=== PATIENT | female | born 1990 | race American Indian/Alaskan Native ===

== ENCOUNTER 2017-05-05 13:05 | Emergency (ER) | payer OTHER, BC ==
[2017-05-05 13:10] VITALS: BMI 21.7
[2017-05-05 13:12] VITALS: RESP 18; TEMP 98.4; O2SAT 98
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
[2017-05-05 15:10] VITALS: BP 127/74; PULSE 89
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
== END 2017-05-05 15:54 | disposition home or self-care (01) ==
LOC: ED 13:05
DX: S13.4XXA Sprain of ligaments of cervical spine, initial encounter (principal); S39.012A Strain of muscle, fascia and tendon of lower back, initial encounter; V49.49XA Driver injured in collision with other motor vehicles in traffic accident, initial encounter; Y92.410 Unspecified street and highway as the place of occurrence of the external cause

== ENCOUNTER 2017-09-19 11:18 | Emergency (ER) | payer OTHER ==
[2017-09-19 11:19] VITALS: BMI 21.7
== END 2017-09-19 11:38 | disposition left against medical advice (07) ==
LOC: ED 11:18
DX: Z02.89 Encounter for other administrative examinations (principal); K08.89 Other specified disorders of teeth and supporting structures

== ENCOUNTER 2018-01-19 14:47 | Emergency (ER) | payer OTHER ==
[2018-01-19 14:48] VITALS: BMI 21.7
--- NOTE | 2018-01-19 16:18 | ED PDOC ---
Arrival/HPI - General Chief Complaint: Abnormal Skin Integrity Time Seen by Provider: 01/19/18 15:56 Historian: Patient - History of Present Illness Narrative History of Present Illness (Text): 01/19/18 16:11 Pt is a 27 yr old female who presents with a right labial abscess x3 days that is described as swollen and painful. Pt states it's worse when sitting and wearing tight pants. reports using the hair removal product 'Ramírez' to remove hair along the bikini line just before she noticed the swelling. Denies fever, chill, sob, dysuria, back pain, numbness or referred pain from the area. LMP was 1 week ago. Denies 01/19/18 17:26 Time/Duration: < week Symptom Onset: Gradual Symptom Course: Unchanged Quality: Aching, Pressure Severity Level: 8 Activities at Onset: Rest, Light Context: Sitting, Home Past Medical History - Provider Review Nursing Documentation Reviewed: Yes - Travel History Have you recently traveled outside [place] w/in the past 3 mons?: No - Infectious Disease Hx of Infectious Diseases: None - Cardiac Hx Cardiac Disorders: No - Pulmonary Hx Respiratory Disorders: Yes Hx Asthma: Yes Hx Bronchitis: Yes - Neurological Hx Neurological Disorder: No - HEENT Hx HEENT Disorder: No - Renal Hx Renal Disorder: No - Endocrine/Metabolic Hx Endocrine Disorders: No - Hematological/Oncological Hx Blood Disorders: No - Integumentary Hx Dermatological Disorder: No - Musculoskeletal/Rheumatological Hx Musculoskeletal Disorders: No - Gastrointestinal Hx Gastrointestinal Disorders: No - Genitourinary/Gynecological Hx Genitourinary Disorders: No - Psychiatric Hx Psychophysiologic Disorder: No Hx Substance Use: No - Surgical History Hx Section: Yes (x2) - Anesthesia Hx Anesthesia: Yes Hx Anesthesia Reactions: No Hx Malignant Hyperthermia: No Family/Social History - Physician Review Nursing Documentation Reviewed: Yes Family/Social History: Unknown Family HX Smoking Status: Former Smoker Hx Alcohol Use: No Hx Substance Use: No Allergies/Home Meds Allergies/Adverse Reactions: Allergies No Known Allergies Allergy (Verified 01/19/18 15:35) Review of Systems - Review of Systems Systems not reviewed;Unavailable: Acuity of Condition Constitutional: Normal Eyes: Normal ENT: Normal Respiratory: Normal. absent: SOB Cardiovascular: Normal. absent: Chest Pain Gastrointestinal: Normal. absent: Abdominal Pain Genitourinary Female: Normal, Other (right labial pain). absent: Dysuria, Frequency, Hematuria, Urine Output Changes, Vaginal Bleeding, Vaginal Discharge Musculoskeletal: Normal. absent: Arthralgias, Back Pain, Joint Swelling Skin: Normal, Abscess (right labial pain). absent: Rash, Pruritis Neurological: Normal. absent: Headache Endocrine: Normal. absent: Diaphoresis Hemo/Lymphatic: Normal Psychiatric: Normal Physical Exam Vital Signs Reviewed: Yes Vital Signs Temp Pulse Resp BP Pulse Ox 01/19/18 17:30 98.7 F 61 20 118/68 98 01/19/18 17:28 98.7 F 61 20 118/68 98 01/19/18 15:35 99.4 F 84 16 122/75 100 Temperature: Afebrile Blood Pressure: Normal Pulse: Regular Respiratory Rate: Normal Appearance: Positive for: Well-Appearing, Non-Toxic, Comfortable Pain Distress: Mild Mental Status: Positive for: Alert and Oriented X 3 - Systems Exam Head: Present: Atraumatic, Normocephalic Respiratory/Chest: Present: Clear to Auscultation, Good Air Exchange. No: Respiratory Distress, Accessory Muscle Use Cardiovascular: Present: Regular Rate and Rhythm, Normal S1, S2. No: Murmurs Abdomen: Present: Normal Bowel Sounds. No: Tenderness, Distention, Peritoneal Signs Genitourinary/Pelvic Exam: Present: Normal External Genitalia (right labia majora abscess), Odor, Other (right labia majora abscess). No: Vaginal Discharge, Vaginal Bleeding, Vaginal Lesions Back: Present: Normal Inspection. No: CVA Tenderness, Midline Tenderness Upper Extremity: Present: Normal Inspection. No: Cyanosis, Edema Lower Extremity: Present: Normal Inspection. No: Edema, CALF TENDERNESS, NORMAL PULSES Neurological: Present: GCS=15, CN II-XII Intact, Speech Normal Skin: Present: Warm, Dry, Normal Color. No: Rashes Psychiatric: Present: Alert, Oriented x 3, Normal Insight, Normal Concentration Medical Decision Making ED Course and Treatment: 01/19/18 17:28 Impression Pt is a 27 yr old female who presents with a right labial abscess x3 days that is described as swollen and painful. On exam, right labia majora abscess open and actively draining purulent dc with odor; rest of the exam benign plan I&D of right labial abscess bactrim PO stat assess and dsipo Progress note lidocaine 1% x 5cc used to infiltrate the area, cleaned with betadyne and NS mix pt tolerated the procedure well advised pt to use sitz bath at home, clean and dry area well; change sanitary liners frequnetly daily take bactrim po as directed and apply bacitracin on the clean and dry area f/u with PMD in 2 days VSS on d/c - Procedure PROCEDURE NOTE (Text): 01/19/18 17:21 PROCEDURE: INCISION & DRAINAGE Performed by the emergency provider Indication: Abscess of right labia Location: Right Labia Majora Preparation: The area was prepped and draped in the usual sterile fashion and was cleansed with .~ Local infiltration of Lidocaine 1% with Epi was used for anesthesia.~ Procedure: ~The most fluctuant portion of the abscess was incised with a #11 scalpel. ~ Approximately 5 mL of purelent fluid was obtained. Area was thoroughly irrigated and dried and left open for secondary healing Post-Procedure: ~On exam the abscess is notably less fluctuant.~ The patient tolerated the procedure well, and there were no complications. Cultured: No Disposition/Present on Arrival - Present on Arrival Any Indicators Present on Arrival: Yes History of DVT/PE: No History of Uncontrolled Diabetes: No Urinary Catheter: No History of Decub. Ulcer: No History Surgical Site Infection Following: None - Disposition Have Diagnosis and Disposition been Completed?: Yes Diagnosis: Abscess of right genital labia Disposition: HOME/ ROUTINE Disposition Time: 17:09 Patient Plan: Discharge Condition: GOOD Discharge Instructions (ExitCare): Boil (DC), How to Do a Sitz Bath Additional Instructions: DILIP RYAN, thank you for letting us take care of you today. Your provider was Michael Mina DO and RICK Valencia and you were treated for BOIL ON THE RIGHT LABIA. The emergency medical care you received today was directed at your acute symptoms. If you were prescribed any medication, please fill it and take as directed. It may take several days for your symptoms to resolve. Return to the Emergency Department if your symptoms worsen, do not improve, or if you have any other problems. PLEASE FOLLOW UP WITH EITHER YOUR PRIMARY CARE DOCTOR OR [facility] IN THE NEXT 2 DAYS. TAKE THE MEDICATION TO PREVENT FURTHER INFECTION. USE A SITZ BATH TO ALLOW THE ABSCESS TO DRAIN, DRY AREA WELL AND APPLY BACITRACIN DAILY; CHANGE SANITARY LINERS FREQUENTLY THROUGHOUT THE DAY Please contact your doctor or call one of the physicians/clinics you have been referred to that are listed on the Patient Visit Information form that is included in your discharge packet. Bring any paperwork you were given at discharge with you along with any medications you are taking to your follow up visit. Our treatment cannot replace ongoing medical care by a primary care provider outside of the emergency department. Thank you for allowing the [facility] team to be part of your care today. Prescriptions: Bacitracin OINT 0 applic TOP TID #1 tube Sulfamethoxazole/Trimethoprim [Bactrim DS 800 mg-160 mg] 1 tab PO BID 7 Days # 10 tab Forms: [employer] (Indonesian), WORK NOTE
[2018-01-19 17:29] VITALS: BP 118/68; PULSE 61; RESP 20; TEMP 98.7; O2SAT 98
== END 2018-01-19 17:30 | disposition home or self-care (01) ==
LOC: ED 14:47
DX: N76.4 Abscess of vulva (principal); Z87.891 Personal history of nicotine dependence